=== PATIENT | male | born 1980 | race Hispanic/Latino ===

== ENCOUNTER 2021-12-01 17:02 | Emergency (ER) | payer SELFPAY ==
[2021-12-01] MEDS ORDERED: Lidocaine 1% PF 5 ML VIAL ONE (17:38)
[2021-12-01] MEDS ORDERED: CEFAZOLIN 1 GM VIAL ONE (18:22)
[2021-12-01] MEDS ORDERED: Boostrix 0.5 ML (Tdap) VIAL ONE (18:22)
[2021-12-01] MEDS ORDERED: HYDROcodone/Acetaminophen 5/325 mg Tablet ONE (18:55)
== END 2021-12-01 18:58 ==
LOC: BURERS 17:02
DX: S68.623A Partial traumatic transphalangeal amputation of left middle finger, initial encounter (principal); W23.0XXA Caught, crushed, jammed, or pinched between moving objects, initial encounter
CPT/HCPCS: 64450; 90471; 90715; 96372; J0690